=== PATIENT | female | born 1980 | race Caucasian/White ===

== ENCOUNTER 2018-02-27 22:25 | Emergency (ER) | payer SELFPAY ==
--- NOTE | 2018-02-27 22:59 | ED ---
Substance Abuse/Use - HPI Summary HPI Summary: HPI unobtainable due to level 5 caveat alcohol intoxication. Pt is 37 y/o F BIBA to ED due to alcohol intoxication. According to EMS she was found in the [place] vomiting and passed out. She had been drinking and smoking marijuana earlier today. - History Of Current Complaint Chief Complaint: EDSubstanceAbuse Stated Complaint: ETOH Time Seen by Provider: 02/27/18 22:56 Hx Obtained From: Patient Hx From Patient Unobtainable Due To: Altered Mental Status Hx Last Menstrual Period: 11/10/12 Onset/Duration of Drug/ETOH Abuse: Hours Ingestion History: Type/Name Of Drug - ETOH, marijuana, Approximate Time Of Ingestion - 19:00 per nurse's report Aggravating Factor(s): Nothing Alleviating Factor(s): Nothing - Allergies/Home Medications Allergies/Adverse Reactions: Allergies Allergy/AdvReac Type Severity Reaction Status Date / Time Sulfa (Sulfonamide AdvReac Rash Verified 02/28/18 04:06 Antibiotics) PMH/Surg Hx/FS Hx/Imm Hx Endocrine/Hematology History: Denies: Hx Diabetes, Hx Thyroid Disease Cardiovascular History: Denies: Hx Hypertension Respiratory History: Denies: Hx Asthma, Hx Chronic Obstructive Pulmonary Disease (COPD) GI History: Denies: Hx Ulcer - Surgical History Surgery Procedure, Year, and Place: tonsilectomy at 12 years old Infectious Disease History: Unable to Obtain/Confirm Infectious Disease History: Denies: Hx Hepatitis, Hx Human Immunodeficiency Virus (HIV), Traveled Outside the [place] in Last 30 Days - Social History Alcohol Use: unknown Substance Use Type: Reports: Marijuana Smoking Status (MU): Unknown if Ever Smoked Review of Systems - ROS Summary Review of Systems Summary: Complete ROS not obtainable due to alcohol intoxication. All Other Systems Reviewed And Are Negative: No Physical Exam - Summary Physical Exam Summary: Appearance: Well-appearing, Well-nourished, lying in bed comfortable Skin: Warm, dry, no obvious rash Eyes: sclera anicteric, no conjunctival pallor ENT: mucous membranes moist Neck: deferred Respiratory: No signs of respiratory distress Cardiovascular: Appears well perfused, pulses are nml Abdomen: deferred Musculoskeletal: Moving all 4 extremities without obvious discomfort Neurological: Somnolent, intoxicated, nonresponsive to attempts at conversation Psychiatric: deferred Triage Information Reviewed: Yes Vital Signs On Initial Exam: Initial Vitals Temp Pulse Resp BP Pulse Ox 95.9 F 66 20 123/78 96 02/27/18 22:35 02/27/18 22:35 02/27/18 22:35 02/27/18 22:35 02/27/18 22:35 Vital Signs Reviewed: Yes Diagnostics - Vital Signs Vital Signs Temp Pulse Resp BP Pulse Ox 02/27/18 22:35 95.9 F 66 20 123/78 96 - Laboratory Lab Statement: Any lab studies that have been ordered have been reviewed, and results considered in the medical decision making process. Course/Dx - Diagnoses Differential Diagnosis/HQI/PQRI: Positive: Alcohol Abuse Provider Diagnoses: Alcohol intoxication Discharge - Sign-Out/Discharge Documenting (check all that apply): Patient Departure - Discharge Plan Condition: Improved Disposition: HOME Patient Education Materials: Abuse of Alcohol (ED) Referrals: [facility] [Outside] [facility] [Outside] Jeffrey Kat MD [Primary Care Provider] - - Billing Disposition and Condition Condition: IMPROVED Disposition: Home - Attestation Statements Document Initiated by Scribe: Yes Documenting Scribe: Yolanda Mcneill Provider For Whom Scribe is Documenting (Include Credential): John Cárdenas MD Scribe Attestation: Yolanda Mcconnell, scribed for John Cárdenas MD on 02/28/18 at 1945. Scribe Documentation Reviewed: Yes Provider Attestation: The documentation as recorded by the scribeYolanda accurately reflects the service I personally performed and the decisions made by me, John Cárdenas MD
[2018-02-28 06:25] VITALS: BP 141/73
== END 2018-02-28 06:25 | disposition home or self-care (01) ==
LOC: ED 22:25
DX: F10.129 Alcohol abuse with intoxication, unspecified (principal); F12.90 Cannabis use, unspecified, uncomplicated
CPT/HCPCS: 99283